=== PATIENT | male | born 1985 | race Caucasian/White ===

== ENCOUNTER 2016-09-12 17:14 | Emergency (ER) | payer OTHER ==
[~2016-09-12] VITALS: Ht 172.7 cm; Wt 70.3 kg
--- NOTE | 2016-09-12 18:06 | ED NECK/BACK PAIN COMPLAINT ---
History of Present Illness General Chief Complaint: Lower Extremity Injury Stated Complaint: PT IS HAVING VERY BAD BACK PAIN Source: patient, old records Exam Limitations: no limitations Vital Signs & Intake/Output Vital Signs & Intake/Output Vital Signs Date Time Temp Pulse Resp B/P B/P Pulse O2 O2 Flow FiO2 Mean Ox Delivery Rate 09/12 1928 96.6 75 18 119/67 98 Room Air 09/12 1731 98.4 09/12 1724 98.4 78 16 132/97 96 Room Air Allergies Coded Allergies: No Known Allergies (09/12/16) Reconcile Medications Cyclobenzaprine HCl 5 MG TABLET 1 TAB PO TIDPRN PRN pain Methylprednisolone. (Medrol) 4 MG TAB.DS.PK 1 DP PO AD lumbar strain 6 on day 1 then reduce by one tablet daily until gone Oxycodone HCl/Acetaminophen (Percocet 5-325 MG Tablet) 5 MG-325 MG TABLET 1 TAB PO BID PRN pain Triage Note: TRIAGE: PT WITH SEVERE CENTRALIZED LOW BACK PAIN UNABLE TO SIT. STATES AT 0800 HE FELT A WEIRD SENSATION IN HIS LUMBAR BACK IN THE SHOWER, TWISTED AND FELT A "SNAP" AND FELL TO FLOOR DUE TO LOSS OF CONTROL OF LEGS. REGAINED CONTROL AFTER 10 MINS. ABLE TO AMBULATE AT THIS TIME. TOOK 0.5MG XANAX AND IBUPROFEN THIS AM WITH MINIMAL EFFECT. ARRIVES WITH BRACE IN PLACE. HX KIDNEY STONES. AFEBRILE. DENIES GI/ SYMPTOMS. DECLINES ICE PACK AND PAIN MEDS OFFERED IN TRIAGE Triage Nurses Notes Reviewed? yes Onset: Abrupt Duration: day(s): (1), constant Timing: recent history Quality/Severity: severe, sharpness Location: paraspinous muscles Loss of Consciousness: no loss of consciousness Modifying Factors: movement, rest Associated Symptoms: denies HPI: 31-year-old male with history of kidney stones and psoriasis presents to ER for evaluation complaining of severe stabbing 10 out of 10 bilateral lower back pain while he was in the shower. Patient states that he was stepping out of the shower when he had the sudden onset of pain. He states that his legs gave out causing him to fall to the ground. He states he has had history of throwing his back In the past however states this is worse he took a Xanax which made him go to sleep however do not help the pain. There is no radiation the pain no urinary or bowel incontinence no abdominal pain. Denies any nausea vomiting fever chills (LALO TOVAR) Past History Travel History Traveled to [place] past 21 day No Medical History Any Pertinent Medical History? see below for history Neurological: NONE EENT: NONE Cardiovascular: NONE Respiratory: NONE Gastrointestinal: NONE Hepatic: NONE Renal: KIDNEY STONES Musculoskeletal: NONE Psychiatric: anxiety Endocrine: NONE Blood Disorders: NONE Cancer(s): NONE Surgical History Surgical History: none Psychosocial History What is your primary language Yemeni Tobacco Use: Never used Family History Hx Contributory? No (LALO TOVAR) Review of Systems Review of Systems Constitutional: Reports: see HPI. All Other Systems: Reviewed and Negative Comments Review of systems: See HPI, All other systems negative. Constitutional, no chills no fever, no malaise HEENT: no sore throat no congestion Cardiovascular: No chest pain , no palpitation Skin: no rashes, no change in skin Respiratory: No dyspnea no cough GI: No nausea no vomiting, no diarrhea, no bloating/constipation : No dysuria No hematuria, no frequency, no discharge Muscle skeletal: No joint pain, no joint swelling, back pain, no neck pain, Neurologic: No numbness no headache Psych: No stress Heme/endocrine: No bruising Immunology: No lymphadenopathy (LALO TOVAR) Physical Exam Physical Exam General Appearance: well developed/nourished, alert, awake Neck: normal inspection, supple DTR: Patellar: 2: L4 Right, L4 Left. Achilles: 2: S1 Right, S1 Left. Comments: Well-developed well-nourished person in no acute distress HEENT: Normal EENT exam; PERRL, EOMI. HEAD is atraumatic. moist mucous membranes. Neck: Supple, normal range of motion Back: Paralumbar muscle tenderness to palpation no midline tenderness, no CVA tenderness. Full range of motion no ecchymosis no signs of trauma no erythema Cardiovascular: Regular rate and rhythms no murmurs rubs Respiratory: Chest nontender.There were no bony deformities, no asymmetry. No respiratory distress. Patient speaking in full complete sentences. Breath sounds clear to auscultation bilaterally: NO W/R/R Abdomen: Soft, nontender nondistended, no appreciable organomegaly. Normal bowel sounds. No rebound/guarding, No appreciable enlargement of the abdominal aorta, No ascites. Extremity: No edema, full range of motion of extremities, negative straight leg raise bilaterally Neuro: Alert oriented x3, motor sensory normal. There were no obvious focal neurologic abnormalities. Skin: Psoriatic lesions noted to the back and arms, skin is warm and dry. Psych: Mood and affect is normal, memory and judgment is normal. (LALO TOVAR) Progress Differential Diagnosis: cauda equina syn, herniated disc, myofascial strain, pyelo/UTI, sciatica, spinal cord inj, T/L spine injury, ureterolithiasis Plan of Care: Orders Procedure Date/time Status CT LUMB SPINE WO IV CONTRAST 09/12 1729 Active Current Medications Sig/Mitch Start time Last Medication Dose Stop Time Status Admin Sodium Chloride 1,000 ML BOLUS ONE 09/12 1800 AC 09/12 (Normal Saline 0.9%) 09/12 1858 183 CAT scan labs ordered patient make it Dilaudid 1 mg IV Valium IV Decadron case discussed with Dr. Reddy Pain improved with medication pending CAT scan On repeat evaluation patient reports to feeling improved and is able to ambulate in the room change position with decreased pain discussed with him his CAT scan results. He feels comfortable with discharge I had an extensive conversation regarding need for close follow up with their primary care physician this week as well as return precautions. I answered all of their questions, they feel comfortable with the plan and follow-up care. I discussed the medications that they will receive with the patient. I gave them signs and symptoms that could indicate an adverse reaction. I have advised them to limit their activities until they can see how they respond to the medication. (LALO TOVAR) Diagnostic Imaging: Viewed by Me: CT Scan. Discussed w/RAD: CT Scan. Radiology Impression: PATIENT: LAURIE HARDIN PRESENT AGE: 31 PATIENT ACCOUNT NO: [id number] : 85 LOCATION: [facility] ORDERING PHYSICIAN: CECILIA REDDY MD SERVICE DATE: 09/12/16 EXAM TYPE: CAT - CT LUMB SPINE WO IV CONTRAST EXAMINATION: CT LUMBAR SPINE WITHOUT CONTRAST CLINICAL INFORMATION: Severe low back pain. Loss control of legs COMPARISON: None TECHNIQUE: Axial images obtained through the lumbar spine. Coronal and sagittal reformatted images are performed at CT scanner DLP: 478.87 mGy-cm FINDINGS: Lumbar vertebrae of normal height and alignment. No fracture or bone destruction. No degenerative change. Lumbar disc heights are normal. No vertebral endplate spurs. Facet joints are normal. No paraspinal hematoma or fluid collection. Visualized portions of kidneys are normal. Abdominal aorta normal. Sacroiliac joints normal. SPINAL LEVELS: T12-L1: Normal. L1-L2: Normal. L2-L3: Normal. L3-L4: Normal. L4-L5: Normal. L5-S1: Normal. IMPRESSION: Unremarkable examination. 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 <Electronically signed in Other Vendor System> SIGNED BY: SYED JIMENEZ MD 09/12/161857 (LALO TOVAR) Departure Departure Time of Disposition: 1910 Disposition: HOME OR SELF CARE Condition: Stable Clinical Impression Primary Impression: Lumbar strain Referrals: PATIENT HAS NO PRIMARY CARE DR (PCP/Family) Additional Instructions: follow up with your pmd this week, rest, interchange ice and heat. flexeril and medrol dosepak as directed. Use caution as the Flexeril may make you drowsy Percocet for breakthrough pain use caution as this is a narcotic highly addictive no driving or drinking alcohol while taking These prescriptions were sent to your [facility] [place], return at anytime sooner with any concerns Departure Forms: Customer Survey General Discharge Information Prescriptions: Current Visit Scripts Cyclobenzaprine HCl 1 TAB PO TIDPRN PRN pain #12 TAB Methylprednisolone. (Medrol) 1 DP PO AD #1 DP 6 on day 1 then reduce by one tablet daily until gone Oxycodone HCl/Acetaminophen (Percocet 5-325 MG Tablet) 1 TAB PO BID PRN pain #10 TAB (LALO TOVAR) PA/CUSTODIAN SUPERVISOR Co-Sign Statement Statement: ED Attending supervision documentation- [] I saw and evaluated the patient. I have also reviewed all the pertinent lab results and diagnostic results. I agree with the findings and the plan of care as documented in the PA's/CUSTODIAN SUPERVISOR's documentation. [X] I have reviewed the ED Record and agree with the PA's/CUSTODIAN SUPERVISOR's documentation. [] Additions or exceptions (if any) to the PAs/CUSTODIAN SUPERVISOR's note and plan are summarized below: [] (JOHN HEALY,CECILIA)
--- NOTE | 2016-09-12 18:58 | CT SCAN REPORT ---
EXAMINATION: CT LUMBAR SPINE WITHOUT CONTRAST CLINICAL INFORMATION: Severe low back pain. Loss control of legs COMPARISON: None TECHNIQUE: Axial images obtained through the lumbar spine. Coronal and sagittal reformatted images are performed at CT scanner DLP: 478.87 mGy-cm FINDINGS: Lumbar vertebrae of normal height and alignment. No fracture or bone destruction. No degenerative change. Lumbar disc heights are normal. No vertebral endplate spurs. Facet joints are normal. No paraspinal hematoma or fluid collection. Visualized portions of kidneys are normal. Abdominal aorta normal. Sacroiliac joints normal. SPINAL LEVELS: T12-L1: Normal. L1-L2: Normal. L2-L3: Normal. L3-L4: Normal. L4-L5: Normal. L5-S1: Normal. IMPRESSION: Unremarkable examination.
[2016-09-12] MEDS ORDERED: CYCLOBENZAPRINE5 M2 PO (19:14)
[2016-09-12] MEDS ORDERED: PERCOCET 5-3251 EACH PO (19:14)
[2016-09-12] MEDS ORDERED: MEDROL4 M2 PO (19:14)
[2016-09-12 19:29] VITALS: BP 119/67
== END 2016-09-12 19:28 ==
LOC: ERH 17:14
DX: S39.012A Strain of muscle, fascia and tendon of lower back, initial encounter (principal); X58.XXXA Exposure to other specified factors, initial encounter; Y93.E1 Activity, personal bathing and showering; Y92.9 Unspecified place or not applicable
CPT/HCPCS: 96374; 96375; J1100; J3360